=== PATIENT | female | born 1985 | race Caucasian/White ===

== ENCOUNTER 2024-02-29 19:15 | Outpatient (CLI) | payer BC ==
[~2024-02-29] VITALS: Ht 162.6 cm; Wt 83.2 kg
[~2024-02-29 19:15] MED LIST: FLEXERIL 1010 MG/TAB PO
--- NOTE | 2024-02-29 19:20 | NUR ---
Presents to L&D, ambulatory. C/O BPs elevated over last couple of days, current headache, rated "2" of 10. Reports positive movement. Denies any leaking of fluid, contractions, or vaginal bleeding. Reports treated headache at 1700 with Tylenol, with no relief. States her last dose of Labetolol was at 0930 this am, and usually takes it again at 2130.
[2024-02-29 19:30] VITALS: BP 128/75; PULSE 76; TEMP 98.1
[2024-02-29] MEDS ORDERED: LR 1,000 ML IV PRN (19:30)
[2024-02-29 19:45] VITALS: BP 149/84; PULSE 76
[2024-02-29 19:55] LABS: BASO # 0.1 K/mm3 (0.0-0.2); BASO % 0.5 % (0.0-2.0); EOS # 0.2 K/mm3 (0.0-0.7); EOS % 1.6 % (0.0-4.0); GRAN # 8.7 K/mm3 (1.4-6.5); GRAN % 70.8 % (42.2-75.2); LYMPH # 2.3 K/mm3 (1.2-3.4); LYMPH % 18.6 % (20.0-51.0); MEAN CELL VOLUME 78 fl (80.0-100.0); MEAN CORPUSCULAR HGB CONC 32 g/dl (33.0-37.0); MEAN PLATELET VOLUME 11.7 fl (7.4-10.4); MONO % 8.3 % (1.7-9.3); PLATELET COUNT 311 K/mm3 (130-400); RED BLOOD COUNT 3.93 M/mm3 (4.10-5.30); REDCELL DISTRIBUTION WIDTH-CV 14.1 % (11.5-14.5)
[2024-02-29 19:56] LABS: HEMATOCRIT 30.8 % (37.0-47.0); HEMOGLOBIN 9.9 g/dl (12.5-16.0); MEAN CORPUSCULAR HEMOGLOBIN 25 pg (27-31)
[2024-02-29 20:00] VITALS: BP 145/75; PULSE 72
[2024-02-29] MEDS ORDERED: NORMODYNE300 MG PO (20:04)
[2024-02-29] MEDS ORDERED: PRILOSEC 20MG20 MG PO (20:05)
[2024-02-29] MEDS ORDERED: SYNTHROID0.112 MG/T PO (20:05)
[2024-02-29] MEDS ORDERED: NATURAL IRON65 MG PO (20:06)
[2024-02-29] MEDS ORDERED: COLACE 100100 MG/CAP PO (20:06)
[2024-02-29 20:11] LABS: ALBUMIN 2.6 g/dL (3.5-5.0); BILIRUBIN,TOTAL 0.3 mg/dL (0.2-1.2); CALCIUM 9.2 mg/dL (8.4-10.2); CREATININE, serum 0.63 mg/dL (0.57-1.11); POTASSIUM 3.7 mEq/L (3.5-4.5); TOTAL PROTEIN 6.6 g/dl (6.2-8.1)
[2024-02-29 20:15] VITALS: BP 128/71; PULSE 74
--- NOTE | 2024-02-29 20:20 | NUR ---
C/O RUQ pain. States intermittent. Was gone but feeling it again.
[2024-02-29 20:30] VITALS: BP 132/76; PULSE 71
[2024-02-29 20:33] LABS: COLLECTION METHOD CLEAN CATCH
[2024-02-29 20:36] LABS: URINE APPEARANCE CLEAR (CLEAR/HAZY); URINE BLOOD NEGATIVE (NEGATIVE); URINE COLOR YELLOW (YELLOW); URINE GLUCOSE NEGATIVE (NEGATIVE); URINE KETONE NEGATIVE (NEGATIVE); URINE NITRATE NEGATIVE (NEGATIVE); URINE PROTEIN(semi-quant) NEGATIVE (NEGATIVE); URINE UROBILINOGEN 0.2 E.U/dL (0.2-1.0)
[2024-02-29 20:45] VITALS: BP 132/77; PULSE 77; TEMP 98
== END 2024-02-29 21:00 | disposition home or self-care (01) ==
LOC: LDRO 19:15
PROVIDERS: Student in an Organized Health Care Education/Training Program
DX: O16.3 Unspecified maternal hypertension, third trimester (principal); R51.9 Headache, unspecified; Z3A.29 29 weeks gestation of pregnancy